=== PATIENT | male | born 1995 | race African-American/Black ===

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

== ENCOUNTER 2017-08-29 10:54 | Emergency (ER) | payer SELFPAY ==
[~2017-08-29] VITALS: Ht 180.3 cm; Wt 110.0 kg
[2017-08-29 11:38] VITALS: BP 138/70
== END 2017-08-29 11:45 | disposition home or self-care (01) | DRG 918 ==
LOC: ED 10:54
DX: T55.0X1A Toxic effect of soaps, accidental (unintentional), initial encounter (principal); L25.3 Unspecified contact dermatitis due to other chemical products

== ENCOUNTER 2018-08-02 15:16 | Emergency (ER) | payer SELFPAY ==
[~2018-08-02] VITALS: Ht 180.3 cm; Wt 117.0 kg
[2018-08-02 17:09] VITALS: BP 128/74
== END 2018-08-02 17:12 | disposition home or self-care (01) | DRG 563 ==
LOC: ED 15:16
DX: S39.012A Strain of muscle, fascia and tendon of lower back, initial encounter (principal); W17.89XA Other fall from one level to another, initial encounter; Y93.89 Activity, other specified

== ENCOUNTER 2018-08-29 12:49 | Emergency (ER) | payer SELFPAY ==
[~2018-08-29] VITALS: Ht 180.3 cm; Wt 115.0 kg
[2018-08-29 14:24] LABS: HEMOGLOBIN 14.4 g/dl (14.0-18.0); IMMATURE GRANULOCYTES 0.4 % (0.0-5.0); MEAN CELL VOLUME 84.1 fL CALC (80.0-100.0); MEAN CORPUSCULAR HGB 25.8 pG CALC (26.0-32.0); MEAN CORPUSCULAR HGB CONC 30.6 g/L CALC (32.0-36.0); NEUT# 11.33 thou/uL (1.82-7.42); RED BLOOD COUNT 5.59 mill/uL (4.70-6.10); RED CELL DISTRI WIDTH 12.9 % (11.5-15.5)
[2018-08-29 14:25] LABS: ALKALINE PHOSPHATASE 74 u/l (38-126); ANION GAP 22 (6-22 (CALC)); BILIRUBIN, TOTAL 1.1 mg/dL (0.0-1.4); BUN 14 mg/dL (9-20); BUN/CREATININE RATIO 12 (12-20 (CALC)); CARBON DIOXIDE 23 mmol/l (22-30); CHLORIDE 102 mmol/l (95-108); CREATININE 1.2 mg/dL (0.7-1.3); GFR > 60 ML/MIN (>=60 (CALC)); GFR FOR AFR.AMER. > 60 ML/MIN (>=60 (CALC)); LIPASE 80 u/l (23-300); POTASSIUM 4.6 mmol/l (3.5-5.1); SGOT/AST 29 u/l (17-59); SODIUM 142 mmol/l (137-146); TOTAL PROTEIN 8.9 g/dL (6.3-8.2)
[2018-08-29 14:29] LABS: ALBUMIN 5.4 g/dL (3.2-5.0)
[2018-08-29 16:48] LABS: URINE BILIRUBIN - DIPSTICK NEGATIVE (NEGATIVE); URINE BLOOD DIPSTICK NEGATIVE (NEGATIVE); URINE COLOR YELLOW; URINE GLUCOSE - DIPSTICK NEGATIVE (NEGATIVE); URINE KETONE NEGATIVE (NEGATIVE); URINE LEUK ESTERASE NEGATIVE (NEGATIVE); URINE NITRITE - DIPSTICK NEGATIVE (Negative); URINE PH 8.5 (4.5-8.0); URINE PROTEIN - DIPSTICK 30 mg/dL (NEG-TRACE); URINE SPECIFIC GRAVITY 1.015; URINE UROBILINOGEN - DIPSTICK 0.2 E.U./dL (0.2)
[2018-08-29 16:53] LABS: BARBITURATES NEGATIVE (NEGATIVE); COCAINE NEGATIVE (NEGATIVE); METHADONE NEGATIVE (NEGATIVE); OXCYCODONE NEGATIVE (NEGATIVE); TETRAHYDROCANNABIONOL POSITIVE (NEGATIVE); TRICYLIC ANTIDEPRESSANTS NEGATIVE (NEGATIVE)
[2018-08-29 16:58] LABS: URINE RBC 0-2 RBC/hpf (0-5); URINE WBC 0-2 WBC/hpf (0-5)
[2018-08-29] MEDS ORDERED: ZOFRAN8 MG PO (17:15)
[2018-08-29] MEDS ORDERED: BENTYL10 MG PO (17:16)
[2018-08-29 17:48] VITALS: BP 118/70
== END 2018-08-29 17:48 | disposition home or self-care (01) | DRG 392 ==
LOC: ED 12:49
PROVIDERS: Emergency Medicine
DX: K52.9 Noninfective gastroenteritis and colitis, unspecified (principal)

== ENCOUNTER 2019-08-02 11:09 | Emergency (ER) | payer SELFPAY ==
[~2019-08-02] VITALS: Ht 180.3 cm; Wt 115.0 kg
[~2019-08-02 11:09] MED LIST changes: +BENTYL10 MG PO; +ZOFRAN8 MG PO
[2019-08-02] MEDS ORDERED: CYCLOBENZAPR5 MG PO (11:24)
[2019-08-02 11:29] VITALS: BP 142/77
== END 2019-08-02 11:34 | disposition home or self-care (01) | DRG 552 ==
LOC: ED 11:09
DX: M62.830 Muscle spasm of back (principal)

== ENCOUNTER 2019-11-13 | Emergency (ER) | payer SELFPAY ==
[~2019-11-13] MED LIST changes: +CYCLOBENZAPR5 MG PO
[2019-11-13 02:34] LABS: HEMATOCRIT 41.7 % (39.0-50.0); IMMATURE GRANULOCYTES 0.2 % (0.0-5.0); MEAN CELL VOLUME 82.7 fL CALC (80.0-100.0); MEAN CORPUSCULAR HGB 25.8 pG CALC (26.0-32.0); MEAN CORPUSCULAR HGB CONC 31.2 g/dL CAL (32.0-36.0); NEUT# 2.44 thou/uL (1.82-7.42); RED BLOOD COUNT 5.04 mill/uL (4.70-6.10); RED CELL DISTRI WIDTH 13.3 % (11.5-15.5)
[2019-11-13 03:07] LABS: ALBUMIN 4.3 g/dL (3.2-5.0); ALKALINE PHOSPHATASE 60 u/l (38-126); AMYLASE 101 u/l (30-110); ANION GAP 11 (6-22 (CALC)); BILIRUBIN, TOTAL 0.3 mg/dL (0.0-1.4); BUN 15 mg/dL (9-20); BUN/CREATININE RATIO 13 (12-20 (CALC)); CARBON DIOXIDE 30 mmol/l (22-30); CHLORIDE 104 mmol/l (95-108); CREATININE 1.2 mg/dL (0.7-1.3); GFR > 60 ML/MIN (>=60 (CALC)); GFR FOR AFR.AMER. > 60 ML/MIN (>=60 (CALC)); LIPASE 152 u/l (23-300); POTASSIUM 3.9 mmol/l (3.5-5.1); SGOT/AST 20 u/l (17-59); SODIUM 141 mmol/l (137-146); TOTAL PROTEIN 7.6 g/dL (6.3-8.2)
[2019-11-13 03:21] LABS: URINE BILIRUBIN - DIPSTICK NEGATIVE (NEGATIVE); URINE BLOOD DIPSTICK NEGATIVE (NEGATIVE); URINE COLOR YELLOW; URINE GLUCOSE - DIPSTICK NEGATIVE (NEGATIVE); URINE KETONE TRACE mg/dL (NEGATIVE); URINE LEUK ESTERASE NEGATIVE (NEGATIVE); URINE NITRITE - DIPSTICK NEGATIVE (Negative); URINE PROTEIN - DIPSTICK NEGATIVE (NEG-TRACE); URINE SPECIFIC GRAVITY 1.025; URINE UROBILINOGEN - DIPSTICK 0.2 E.U./dL (0.2)
[2019-11-13 03:25] LABS: BARBITURATES NEGATIVE (NEGATIVE); COCAINE NEGATIVE (NEGATIVE); METHADONE NEGATIVE (NEGATIVE); OXCYCODONE NEGATIVE (NEGATIVE); TETRAHYDROCANNABIONOL POSITIVE (NEGATIVE); TRICYLIC ANTIDEPRESSANTS NEGATIVE (NEGATIVE)
[2019-11-13] MEDS ORDERED: ONDANSETRON4 MG PO (03:47)
[2019-11-13] MEDS ORDERED: PROTONIX40 M2 PO (03:47)
== END 2019-11-13 03:58 | disposition home or self-care (01) | DRG 392 ==
DX: R11.2 Nausea with vomiting, unspecified (principal); R10.84 Generalized abdominal pain; K29.70 Gastritis, unspecified, without bleeding; R82.5 Elevated urine levels of drugs, medicaments and biological substances
CPT/HCPCS: S0164

== ENCOUNTER 2019-12-04 | Emergency (ER) | payer SELFPAY ==
[~2019-12-04] MED LIST changes: +ONDANSETRON4 MG PO; +PROTONIX40 M2 PO
[2019-12-04 21:02] LABS: HEMATOCRIT 41.2 % (39.0-50.0); HEMOGLOBIN 12.7 g/dl (14.0-18.0); IMMATURE GRANULOCYTES 0.2 % (0.0-5.0); MEAN CELL VOLUME 81.7 fL CALC (80.0-100.0); MEAN CORPUSCULAR HGB 25.2 pG CALC (26.0-32.0); MEAN CORPUSCULAR HGB CONC 30.8 g/dL CAL (32.0-36.0); NEUT# 2.83 thou/uL (1.82-7.42); RED BLOOD COUNT 5.04 mill/uL (4.70-6.10); RED CELL DISTRI WIDTH 13.3 % (11.5-15.5)
[2019-12-04 21:11] LABS: ALBUMIN 4.5 g/dL (3.2-5.0); ALKALINE PHOSPHATASE 56 u/l (38-126); AMYLASE 112 u/l (30-110); ANION GAP 11 (6-22 (CALC)); BUN 15 mg/dL (9-20); BUN/CREATININE RATIO 12 (12-20 (CALC)); CARBON DIOXIDE 27 mmol/l (22-30); CHLORIDE 107 mmol/l (95-108); CREATININE 1.3 mg/dL (0.7-1.3); GFR > 60 ML/MIN (>=60 (CALC)); GFR FOR AFR.AMER. > 60 ML/MIN (>=60 (CALC)); LIPASE 96 u/l (23-300); POTASSIUM 3.8 mmol/l (3.5-5.1); SGOT/AST 21 u/l (17-59); SODIUM 141 mmol/l (137-146); TOTAL PROTEIN 7.9 g/dL (6.3-8.2)
[2019-12-04 21:12] LABS: BILIRUBIN, TOTAL 0.5 mg/dL (0.0-1.4)
[2019-12-04] MEDS ORDERED: PEPCID20 MG PO (21:35)
[2019-12-04] MEDS ORDERED: PHENERGAN25 MG/TAB PO (21:35)
== END 2019-12-04 22:18 | disposition home or self-care (01) | DRG 379 ==
PROVIDERS: Family Medicine
DX: K29.71 Gastritis, unspecified, with bleeding (principal); T50.906A Underdosing of unspecified drugs, medicaments and biological substances, initial encounter; Z91.120 Patient's intentional underdosing of medication regimen due to financial hardship

== ENCOUNTER 2019-12-21 | Emergency (ER) | payer SELFPAY ==
[~2019-12-21] MED LIST changes: +PEPCID20 MG PO; +PHENERGAN25 MG/TAB PO
[2019-12-21] MEDS ORDERED: PEPCID20 MG PO ×2 (20:46)
[2019-12-21] MEDS ORDERED: ZOFRAN4 MG/TAB PO ×2 (20:46)
== END 2019-12-21 21:08 | disposition home or self-care (01) | DRG 392 ==
DX: R11.2 Nausea with vomiting, unspecified (principal)

== ENCOUNTER 2019-12-28 21:21 | Emergency (ER) | payer SELFPAY ==
[~2019-12-28 21:21] MED LIST changes: +ZOFRAN4 MG/TAB PO
[2019-12-28 23:17] LABS: URINE BILIRUBIN - DIPSTICK NEGATIVE (NEGATIVE); URINE BLOOD DIPSTICK NEGATIVE (NEGATIVE); URINE COLOR YELLOW; URINE GLUCOSE - DIPSTICK NEGATIVE (NEGATIVE); URINE KETONE NEGATIVE (NEGATIVE); URINE LEUK ESTERASE NEGATIVE (NEGATIVE); URINE NITRITE - DIPSTICK NEGATIVE (Negative); URINE PROTEIN - DIPSTICK NEGATIVE (NEG-TRACE); URINE SPECIFIC GRAVITY >=1.030
[2019-12-28 23:25] LABS: BARBITURATES NEGATIVE (NEGATIVE); COCAINE NEGATIVE (NEGATIVE); METHADONE NEGATIVE (NEGATIVE); OXCYCODONE NEGATIVE (NEGATIVE); TETRAHYDROCANNABIONOL POSITIVE (NEGATIVE); TRICYLIC ANTIDEPRESSANTS NEGATIVE (NEGATIVE)
[2019-12-28 23:28] LABS: HEMATOCRIT 41.5 % (39.0-50.0); HEMOGLOBIN 12.6 g/dl (14.0-18.0); IMMATURE GRANULOCYTES 0.4 % (0.0-5.0); MEAN CELL VOLUME 82.2 fL CALC (80.0-100.0); MEAN CORPUSCULAR HGB CONC 30.4 g/dL CAL (32.0-36.0); NEUT# 2.47 thou/uL (1.82-7.42); RED BLOOD COUNT 5.05 mill/uL (4.70-6.10); RED CELL DISTRI WIDTH 13.2 % (11.5-15.5)
[2019-12-28 23:41] LABS: ALBUMIN 4.3 g/dL (3.2-5.0); ALKALINE PHOSPHATASE 55 u/l (38-126); ANION GAP 9 (6-22 (CALC)); BILIRUBIN, TOTAL 0.8 mg/dL (0.0-1.4); BUN 14 mg/dL (9-20); BUN/CREATININE RATIO 12 (12-20 (CALC)); CARBON DIOXIDE 28 mmol/l (22-30); CHLORIDE 105 mmol/l (95-108); CREATININE 1.1 mg/dL (0.7-1.3); GFR > 60 ML/MIN (>=60 (CALC)); GFR FOR AFR.AMER. > 60 ML/MIN (>=60 (CALC)); POTASSIUM 4.1 mmol/l (3.5-5.1); SGOT/AST 27 u/l (17-59); SODIUM 138 mmol/l (137-146); TOTAL PROTEIN 7.6 g/dL (6.3-8.2)
[2019-12-29 00:23] VITALS: BP 120/59
== END 2019-12-29 00:33 | disposition home or self-care (01) | DRG 948 ==
LOC: ED 21:21
PROVIDERS: Emergency Medicine
DX: R53.1 Weakness (principal)

== ENCOUNTER 2020-01-03 06:41 | Emergency (ER) | payer SELFPAY ==
[2020-01-03] MEDS ORDERED: ONDANSETRON4 MG PO ×2 (07:14)
[2020-01-03 07:16] VITALS: BP 122/68
== END 2020-01-03 07:22 | disposition home or self-care (01) | DRG 392 ==
LOC: ED 06:41
DX: R10.13 Epigastric pain (principal)

== ENCOUNTER 2020-05-18 10:13 | Emergency (ER) | payer SELFPAY ==
[~2020-05-18] VITALS: Ht 180.3 cm; Wt 175.0 kg
[2020-05-18] MEDS ORDERED: PEPCID20 MG PO (12:20)
[2020-05-18] MEDS ORDERED: REGLAN10 MG PO (12:20)
[2020-05-18 13:59] VITALS: BP 130/72
== END 2020-05-18 14:04 | disposition home or self-care (01) | DRG 395 ==
LOC: ED 10:13
DX: R11.15 Cyclical vomiting syndrome unrelated to migraine (principal); K21.9 Gastro-esophageal reflux disease without esophagitis; Z20.828 Contact with and (suspected) exposure to other viral communicable diseases

== ENCOUNTER 2021-02-03 20:16 | Emergency (ER) | payer SELFPAY ==
[~2021-02-03] VITALS: Ht 180.3 cm; Wt 120.5 kg
[~2021-02-03 20:16] MED LIST changes: +REGLAN10 MG PO
[2021-02-03 20:57] LABS: HEMATOCRIT 37.8 % (39.0-50.0); HEMOGLOBIN 11.6 g/dl (14.0-18.0); IMMATURE GRANULOCYTES 0.2 % (0.0-5.0); MEAN CELL VOLUME 83.1 fL CALC (80.0-100.0); MEAN CORPUSCULAR HGB 25.5 pG CALC (26.0-32.0); MEAN CORPUSCULAR HGB CONC 30.7 g/dL CAL (32.0-36.0); NEUT# 4.33 thou/uL (1.82-7.42); RED BLOOD COUNT 4.55 mill/uL (4.70-6.10); RED CELL DISTRI WIDTH 13.2 % (11.5-15.5)
[2021-02-03 21:11] LABS: ALBUMIN 4.2 g/dL (3.2-5.0); ALKALINE PHOSPHATASE 68 u/l (38-126); ANION GAP 13 (6-22 (CALC)); BILIRUBIN, TOTAL 0.6 mg/dL (0.0-1.4); BUN 10 mg/dL (9-20); BUN/CREATININE RATIO 9 (12-20 (CALC)); CARBON DIOXIDE 26 mmol/l (22-30); CHLORIDE 103 mmol/l (95-108); CREATININE 1.2 mg/dL (0.7-1.3); GFR > 60 ML/MIN (>=60 (CALC)); GFR FOR AFR.AMER. > 60 ML/MIN (>=60 (CALC)); POTASSIUM 3.6 mmol/l (3.5-5.1); SGOT/AST 23 u/l (17-59); SODIUM 138 mmol/l (137-146); TOTAL PROTEIN 7.3 g/dL (6.3-8.2)
[2021-02-03 22:57] VITALS: BP 154/80
== END 2021-02-03 23:02 | disposition home or self-care (01) | DRG 103 ==
LOC: ED 20:16
PROVIDERS: Emergency Medicine
DX: R51.9 Headache, unspecified (principal); Z82.0 Family history of epilepsy and other diseases of the nervous system

== ENCOUNTER 2021-08-14 05:52 | Emergency (ER) | payer SELFPAY ==
[~2021-08-14] VITALS: Ht 180.3 cm; Wt 122.0 kg
[2021-08-14 06:01] VITALS: BP 136/71
[2021-08-14] MEDS ORDERED: VOLTAREN75 MG PO (06:18)
[2021-08-14] MEDS ORDERED: ORPHENADRINE100 MG PO (06:18)
== END 2021-08-14 06:40 | disposition home or self-care (01) | DRG 552 ==
LOC: ED 05:52
DX: M54.6 Pain in thoracic spine (principal)

== ENCOUNTER 2021-08-31 19:36 | Emergency (ER) | payer SELFPAY ==
[~2021-08-31] VITALS: Ht 180.3 cm; Wt 118.0 kg
[~2021-08-31 19:36] MED LIST changes: +ORPHENADRINE100 MG PO; +VOLTAREN75 MG PO
[2021-08-31 23:22] VITALS: BP 180/80
== END 2021-08-31 23:27 | disposition home or self-care (01) | DRG 153 ==
LOC: ED 19:36
DX: J06.9 Acute upper respiratory infection, unspecified (principal); Z20.822 Contact with and (suspected) exposure to COVID-19

== ENCOUNTER 2021-10-03 11:46 | Emergency (ER) | payer SELFPAY ==
[~2021-10-03] VITALS: Ht 180.3 cm; Wt 120.0 kg
[2021-10-03 12:53] LABS: ALBUMIN 4.3 g/dL (3.2-5.0); ALKALINE PHOSPHATASE 66 u/l (38-126); ANION GAP 12 (6-22 (CALC)); BUN 11 mg/dL (9-20); BUN/CREATININE RATIO 8 (12-20 (CALC)); CARBON DIOXIDE 27 mmol/l (22-30); CHLORIDE 108 mmol/l (95-108); CREATININE 1.3 mg/dL (0.7-1.3); GFR > 60 ML/MIN (>=60 (CALC)); GFR FOR AFR.AMER. > 60 ML/MIN (>=60 (CALC)); LIPASE 72 u/l (23-300); SGOT/AST 28 u/l (17-59); SODIUM 143 mmol/l (137-146); TOTAL PROTEIN 7.4 g/dL (6.3-8.2)
[2021-10-03 12:58] LABS: HEMATOCRIT 41.4 % (39.0-50.0); HEMOGLOBIN 12.5 g/dl (14.0-18.0); MEAN CELL VOLUME 85.9 fL CALC (80.0-100.0); MEAN CORPUSCULAR HGB 25.9 pG CALC (26.0-32.0); MEAN CORPUSCULAR HGB CONC 30.2 g/dL CAL (32.0-36.0); NEUT# 2.34 thou/uL (1.82-7.42); RED BLOOD COUNT 4.82 mill/uL (4.70-6.10); RED CELL DISTRI WIDTH 13.4 % (11.5-15.5)
[2021-10-03 13:20] LABS: BILIRUBIN, TOTAL 0.3 mg/dL (0.0-1.4)
[2021-10-03] MEDS ORDERED: CVS OMEPRAZOLE20 MG PO (13:24)
[2021-10-03 13:29] VITALS: BP 128/77
== END 2021-10-03 13:50 | disposition home or self-care (01) | DRG 379 ==
LOC: ED 11:46
PROVIDERS: Family Medicine
DX: K29.71 Gastritis, unspecified, with bleeding (principal)

== ENCOUNTER 2022-01-02 05:53 | Emergency (ER) | payer SELFPAY ==
[~2022-01-02] VITALS: Ht 180.3 cm; Wt 125.0 kg
[~2022-01-02 05:53] MED LIST changes: +CVS OMEPRAZOLE20 MG PO
[2022-01-02 06:03] VITALS: BP 128/78
[2022-01-02 06:15] VITALS: BP 133/77
[2022-01-02 06:30] LABS: URINE BILIRUBIN - DIPSTICK NEGATIVE (NEGATIVE); URINE BLOOD DIPSTICK TRACE-INTACT (NEGATIVE); URINE COLOR YELLOW; URINE GLUCOSE - DIPSTICK NEGATIVE (NEGATIVE); URINE KETONE NEGATIVE (NEGATIVE); URINE LEUK ESTERASE NEGATIVE (NEGATIVE); URINE PROTEIN - DIPSTICK TRACE mg/dL (NEG-TRACE); URINE SPECIFIC GRAVITY 1.015; URINE UROBILINOGEN - DIPSTICK 0.2 E.U./dL (0.2)
[2022-01-02 06:33] LABS: URINE NITRITE - DIPSTICK NEGATIVE (Negative)
[2022-01-02 06:38] LABS: HEMATOCRIT 43.7 % (39.0-50.0); HEMOGLOBIN 13.2 g/dl (14.0-18.0); IMMATURE GRANULOCYTES 0.2 % (0.0-5.0); MEAN CELL VOLUME 85.7 fL CALC (80.0-100.0); MEAN CORPUSCULAR HGB 25.9 pG CALC (26.0-32.0); MEAN CORPUSCULAR HGB CONC 30.2 g/dL CAL (32.0-36.0); NEUT# 2.6 thou/uL (1.82-7.42); RED BLOOD COUNT 5.1 mill/uL (4.70-6.10); RED CELL DISTRI WIDTH 13.5 % (11.5-15.5)
[2022-01-02 06:44] LABS: ALBUMIN 4.2 g/dL (3.2-5.0); ALKALINE PHOSPHATASE 68 u/l (38-126); AMYLASE 100 u/l (30-110); ANION GAP 10 (6-22 (CALC)); BUN 17 mg/dL (9-20); BUN/CREATININE RATIO 13 (12-20 (CALC)); CARBON DIOXIDE 27 mmol/l (22-30); CHLORIDE 108 mmol/l (95-108); CREATININE 1.3 mg/dL (0.7-1.3); GFR > 60 ML/MIN (>=60 (CALC)); GFR FOR AFR.AMER. > 60 ML/MIN (>=60 (CALC)); LIPASE 110 u/l (23-300); POTASSIUM 4.2 mmol/l (3.5-5.1); SGOT/AST 21 u/l (17-59); SODIUM 141 mmol/l (137-146); TOTAL PROTEIN 7.2 g/dL (6.3-8.2)
[2022-01-02 06:46] VITALS: BP 133/64
[2022-01-02 06:48] LABS: BILIRUBIN, TOTAL 0.1 mg/dL (0.0-1.4)
[2022-01-02] MEDS ORDERED: PEPCID20 MG PO (06:56)
[2022-01-02] MEDS ORDERED: ONDANSETRON4 MG PO (06:56)
[2022-01-02 07:01] VITALS: BP 141/81
[2022-01-02 07:15] VITALS: BP 135/99
[2022-01-02 07:31] VITALS: BP 144/72
== END 2022-01-02 07:40 | disposition home or self-care (01) | DRG 392 ==
LOC: ED 05:53
PROVIDERS: Family Medicine
DX: R11.2 Nausea with vomiting, unspecified (principal)
CPT/HCPCS: S0164

== ENCOUNTER 2022-01-09 10:36 | Emergency (ER) | payer SELFPAY ==
[~2022-01-09] VITALS: Ht 180.3 cm; Wt 123.0 kg
[2022-01-09 12:47] VITALS: BP 158/91
== END 2022-01-09 13:22 | disposition home or self-care (01) | DRG 179 ==
LOC: ED 10:36
DX: U07.1 COVID-19 (principal); R05.9 Cough, unspecified; R09.89 Other specified symptoms and signs involving the circulatory and respiratory systems

== ENCOUNTER 2022-03-13 06:05 | Emergency (ER) | payer BC ==
[~2022-03-13] VITALS: Ht 180.3 cm; Wt 125.0 kg
[2022-03-13 06:33] VITALS: BP 139/82
[2022-03-13 07:01] VITALS: BP 141/91
[2022-03-13 07:11] VITALS: BP 136/87
[2022-03-13 07:26] VITALS: BP 136/87
== END 2022-03-13 07:23 | disposition home or self-care (01) | DRG 392 ==
LOC: ED 06:05
DX: R10.9 Unspecified abdominal pain (principal); R19.5 Other fecal abnormalities; Z86.16 Personal history of COVID-19; Z20.822 Contact with and (suspected) exposure to COVID-19

== ENCOUNTER 2022-04-30 09:07 | Emergency (ER) | payer BC ==
[2022-04-30] VITALS (7 sets, daily range): BP systolic 122–147; BP diastolic 67–90
[~2022-04-30] VITALS: Ht 180.3 cm; Wt 120.0 kg
[2022-04-30 09:46] LABS: HEMATOCRIT 39.2 % (39.0-50.0); HEMOGLOBIN 12.4 g/dl (14.0-18.0); IMMATURE GRANULOCYTES 0.2 % (0.0-5.0); MEAN CELL VOLUME 83.2 fL CALC (80.0-100.0); MEAN CORPUSCULAR HGB 26.3 pG CALC (26.0-32.0); MEAN CORPUSCULAR HGB CONC 31.6 g/dL CAL (32.0-36.0); NEUT# 2.64 thou/uL (1.82-7.42); RED BLOOD COUNT 4.71 mill/uL (4.70-6.10); RED CELL DISTRI WIDTH 12.9 % (11.5-15.5)
[2022-04-30 09:46] LABS: URINE BILIRUBIN - DIPSTICK NEGATIVE (NEGATIVE); URINE BLOOD DIPSTICK LARGE (NEGATIVE); URINE COLOR YELLOW; URINE GLUCOSE - DIPSTICK NEGATIVE (NEGATIVE); URINE KETONE NEGATIVE (NEGATIVE); URINE LEUK ESTERASE NEGATIVE (NEGATIVE); URINE PROTEIN - DIPSTICK NEGATIVE (NEG-TRACE); URINE UROBILINOGEN - DIPSTICK 0.2 E.U./dL (0.2)
[2022-04-30 09:51] LABS: URINE NITRITE - DIPSTICK NEGATIVE (Negative)
[2022-04-30 09:52] LABS: URINE RBC 25-50 RBC/hpf (0-5)
[2022-04-30 09:56] LABS: ALBUMIN 4.2 g/dL (3.2-5.0); ALKALINE PHOSPHATASE 62 u/l (38-126); ANION GAP 12 (6-22 (CALC)); BILIRUBIN, TOTAL 0.2 mg/dL (0.0-1.4); BUN 12 mg/dL (9-20); BUN/CREATININE RATIO 10 (12-20 (CALC)); CARBON DIOXIDE 25 mmol/l (22-30); CHLORIDE 106 mmol/l (95-108); CREATININE 1.3 mg/dL (0.7-1.3); GFR FOR AFR.AMER. > 60 ML/MIN (>=60 (CALC)); GFR OTHER RACES > 60 ML/MIN (>=60 (CALC)); LIPASE 76 u/l (23-300); SGOT/AST 23 u/l (17-59); SODIUM 139 mmol/l (137-146); TOTAL PROTEIN 7.1 g/dL (6.3-8.2)
[2022-04-30] MEDS ORDERED: OMNICEF300 M1 PO (10:40)
== END 2022-04-30 10:49 | disposition home or self-care (01) | DRG 696 ==
LOC: ED 09:07
PROVIDERS: Family Medicine
DX: R31.9 Hematuria, unspecified (principal); E66.9 Obesity, unspecified

== ENCOUNTER 2022-07-30 06:43 | Emergency (ER) | payer BC ==
[~2022-07-30] VITALS: Ht 180.3 cm; Wt 104.3 kg
[~2022-07-30 06:43] MED LIST changes: +OMNICEF300 M1 PO
[2022-07-30] MEDS ORDERED: NAPROXEN500 MG PO (08:04)
[2022-07-30] MEDS ORDERED: FLEXERIL5 M1 PO (08:04)
[2022-07-30 08:29] VITALS: BP 120/71
== END 2022-07-30 08:43 | disposition home or self-care (01) | DRG 552 ==
LOC: ED 06:43
DX: M54.50 Low back pain, unspecified (principal); W01.0XXA Fall on same level from slipping, tripping and stumbling without subsequent striking against object, initial encounter

== ENCOUNTER 2022-09-20 10:37 | Emergency (ER) | payer SELFPAY ==
[~2022-09-20] VITALS: Ht 180.3 cm; Wt 122.0 kg
[~2022-09-20 10:37] MED LIST changes: +FLEXERIL5 M1 PO; +NAPROXEN500 MG PO
[2022-09-20] MEDS ORDERED: FLONASE AL50 MCG/ACT (11:48)
[2022-09-20] MEDS ORDERED: ZYRTEC10 MG PO (11:48)
[2022-09-20] MEDS ORDERED: AMOX/K CLAV875 M1 PO (11:48)
[2022-09-20 12:00] VITALS: BP 165/88
== END 2022-09-20 12:00 | disposition home or self-care (01) | DRG 153 ==
LOC: ED 10:37
DX: J32.9 Chronic sinusitis, unspecified (principal); Z20.822 Contact with and (suspected) exposure to COVID-19

== ENCOUNTER 2022-10-08 08:45 | Emergency (ER) | payer SELFPAY ==
[~2022-10-08] VITALS: Ht 180.3 cm; Wt 113.6 kg
[2022-10-08] VITALS (14 sets, daily range): BP systolic 116–140; BP diastolic 67–94
[~2022-10-08 08:45] MED LIST changes: +AMOX/K CLAV875 M1 PO; +FLONASE AL50 MCG/ACT; +ZYRTEC10 MG PO
[2022-10-08 11:14] LABS: URINE BLOOD DIPSTICK LARGE (NEGATIVE); URINE COLOR BROWN; URINE GLUCOSE - DIPSTICK NEGATIVE (NEGATIVE); URINE KETONE NEGATIVE (NEGATIVE); URINE LEUK ESTERASE NEGATIVE (NEGATIVE); URINE PH 6.5 (4.5-8.0); URINE PROTEIN - DIPSTICK 100 mg/dL (NEG-TRACE); URINE SPECIFIC GRAVITY >=1.030; URINE UROBILINOGEN - DIPSTICK 0.2 E.U./dL (0.2)
[2022-10-08 11:18] LABS: URINE BILIRUBIN - DIPSTICK SMALL (NEGATIVE)
[2022-10-08 11:19] LABS: URINE NITRITE - DIPSTICK NEGATIVE (Negative)
[2022-10-08 11:21] LABS: URINE RBC 50-100 RBC/hpf (0-5)
[2022-10-08] MEDS ORDERED: KEFLEX500 MG PO (15:29)
== END 2022-10-08 15:42 | disposition home or self-care (01) | DRG 696 ==
LOC: ED 08:45
PROVIDERS: Emergency Medicine
DX: R31.9 Hematuria, unspecified (principal); F17.200 Nicotine dependence, unspecified, uncomplicated